=== PATIENT | female | born 1960 | race Caucasian/White ===

== ENCOUNTER → 2024-06-26 12:28 | Outpatient (REF) | payer OTHER, SELFPAY | LOC: HWWDC 12:28 | PROVIDERS: ATTENDING PHYSICIAN Physician Assistant Medical | DX: Z12.31 Encounter for screening mammogram for malignant neoplasm of breast (principal) | CPT/HCPCS: 77063; 77067 ==

== ENCOUNTER → 2024-07-18 13:37 | Outpatient (REF) | payer MEDICARE, SELFPAY | LOC: RAD 13:37 | PROVIDERS: ATTENDING PHYSICIAN Internal Medicine Rheumatology; FAMILY PHYSICIAN Physician Assistant Medical | DX: M81.0 Age-related osteoporosis without current pathological fracture (principal) | CPT/HCPCS: 77080 ==

== ENCOUNTER → 2025-03-21 13:07 | Outpatient (REF) | payer MEDICARE, OTHER, SELFPAY | LOC: RAD 13:07 | PROVIDERS: ATTENDING PHYSICIAN Physician Assistant; FAMILY PHYSICIAN Physician Assistant Medical; OTHER PHYSICIAN Physician Assistant | DX: M54.50 Low back pain, unspecified (principal); M25.561 Pain in right knee | CPT/HCPCS: 72110; 73560; 73565 ==

== ENCOUNTER 2025-04-13 12:28 | Emergency (ER) | payer MEDICARE, OTHER, SELFPAY ==
[2025-04-13 12:32] VITALS: BP 162/94
--- NOTE | 2025-04-13 13:17 | ED.GENMED ---
History of Present Illness
General
Chief Complaint: Back Pain
Source: patient
Exam Limitations: none
Time Seen by Provider: 04/13/25 13:04
History of Present Illness
History of Present Illness:
64-year-old female presents with lower back pain that radiates through the right buttock into the posterior thigh and down to the foot. The leg actually hurts worse than the back. No associated bowel or bladder dysfunction. No fever. She injured
her back in January and has had difficulty since then. She has been doing physical therapy and using [id number]-[id number] medications without significant relief. The pain seems to have worsened over the past several days. She has followed up with her
doctor. An MRI scheduled for next week. She has had an x-ray performed of her back.
Past History
Past History
ED Past Medical History: None
ED Past Surgical History: None
Social History
Tobacco: Non-smoker
Alcohol: None
Phy Exam
Physical Exam
Physical Exam:
General: Well-appearing but uncomfortable female no acute respiratory distress
HEENT: Normal cephalic atraumatic
Musculoskeletal exam: Patient has good range of motion to the right leg without deformity
Vascular: 2+ DP pulse bilateral feet
Neurologic exam: Good sensation to light touch bilateral lower extremities. She has good strength to lower extremities however she does have a positive straight leg raise to the right leg with her hip in flexion and her knee extended. This
reproduces pain over the posterior aspect of her leg
Skin is warm without a rash
Course
Orders/Labs/Results
Orders:
Orders
04/13/25 13:16
Dexamethasone Sod Phosphate [Decadron] 10 mg IV NOW STA
Ketorolac [Toradol] 15 mg IV NOW STA
diazePAM [Valium Injection] 5 mg IV NOW STA
Vital Signs
Initial and Last Documented VS:
Initial Vital Signs
Temp Pulse Resp BP Pulse Ox
98.1 F 72 22 162/94 99
04/13/25 12:32 04/13/25 12:32 04/13/25 12:32 04/13/25 12:32 04/13/25 12:32
Last Documented Vital Signs
Temp Pulse Resp BP Pulse Ox
97.6 F 71 16 131/73 94
04/13/25 13:32 04/13/25 13:32 04/13/25 13:32 04/13/25 13:32 04/13/25 13:32
MDM/Problems Addressed
Differential Diagnosis Includes:
Patient with low back pain that radiates down the right leg. Most consistent with radiculopathy. No red flags to suggest cauda equina or fever to suggest infectious source. Hlrj-ori-kqqbkzn medications have not been helping recently. Will try
Toradol Decadron and Valium in an attempt to alleviate some of her discomfort. Patient was hoping for an MRI in the emergency room of her back however at this point there is no emergent indication to do so.
*Pulse Oximetry
SaO2: 99
Oxygen Mode of Delivery: Room air
Patient hypoxic: no
*Critical Care Note
Total Time (30-74mins, 75-104mins- exclusive of procedures): Not Applicable
Update Note
Update Note:
Patient feeling improved after medication given here. Suspect radiculopathy. Will discharge with prednisone and Valium. She has an MRI for later this week. Offered walker however she declined
ED Attending Note
-
Portions of this chart may have been created with voice recognition software.� Occasional wrong word or��sound alike� substitutions may have occurred due to the inherent limitations of voice recognition software.
Discharge Plan
Departure
Patient Disposition: Home (Routine Discharge)
Date of Disposition: 04/13/25
Time of Disposition: 15:39
Patient with high blood pressure during this ER visit?: No
Discharge Problem:
Acute lumbar radiculopathy
Prescriptions:
New
prednisone 10 mg Tablet
See Rx Instructions .ROUTE .COMPLEX Qty: 30 0RF
Rx Instructions:
Take By Mouth:
40 mg daily x3 days, 30 mg daily x3 days,
20 mg daily x3 days, 10 mg daily x3 days.
diazepam [Valium] 5 mg tablet
5 mg PO BID PRN (Reason: muscle spasm) Qty: 10 0RF
Referrals:
Antony Little PA-C [Family Provider, Family Practice]
Activity Restrictions/Additional Instructions:
Take medicine as directed. Rest. Use warm compresses. Follow-up with your doctor as planned. Return if worse otherwise
Interventions
Interventions:
*Risk Screen - Suicide Last Done: 04/13/25 12:36
*General Assessment Last Done: 04/13/25 12:36
*Neglect/Abuse Screening Last Done: 04/13/25 12:36
*ED- Fall Risk Assessment Last Done: 04/13/25 13:32
*ED COVID-19 Vaccine History Last Done: 04/13/25 13:32
ED-Musculoskeletal Assessment Last Done: 04/13/25 13:32
Discharge Date and Time
Print Language: MALDIVIAN
[2025-04-13 13:26] VITALS: BMI 27.4
[2025-04-13] MEDS: VALIUM INJECTION 5 MG IV (13:28)
[2025-04-13] MEDS: DECADRON 10 MG IV (13:28)
[2025-04-13] MEDS: TORADOL 15 MG IV (13:28)
[2025-04-13 13:32] VITALS: BP 131/73
[2025-04-13 14:00] VITALS: BP 116/68
[2025-04-13 15:00] VITALS: BP 120/74
[2025-04-13 16:13] VITALS: BP 131/78
== END 2025-04-13 16:21 | disposition home or self-care (01) ==
LOC: EMR 12:28
PROVIDERS: EMERGENCY PHYSICIAN Emergency Medicine; FAMILY PHYSICIAN Physician Assistant Medical
DX: M54.16 Radiculopathy, lumbar region (principal)
CPT/HCPCS: 96374; 96375; 99284

== ENCOUNTER → 2025-04-20 10:40 | Outpatient (REF) | payer MEDICARE, OTHER, SELFPAY | LOC: PAVMRI 10:40 | PROVIDERS: ATTENDING PHYSICIAN Physician Assistant Medical | DX: M54.10 Radiculopathy, site unspecified (principal) | CPT/HCPCS: 72148 ==